=== PATIENT | male | born 1965 | race Hispanic/Latino ===

== ENCOUNTER 2017-03-31 09:09 | Outpatient (CLI) | payer BC ==
--- NOTE | 2017-03-31 10:33 | XRay Report ---
Bilateral knees: Pain. Standing views of both knees demonstrate moderate sized periarticular spurs involving the medial compartments. Subchondral cysts are identified involving both medial femoral condyles with suspicion of narrowing of the medial joint compartments bilaterally. There is relatively good alignment of both knees. The bones are well-mineralized. No swelling and no effusions are noted. Impressions: Degenerative medial compartment changes bilaterally.
== END 2017-03-31 09:10 | disposition home or self-care (01) ==
LOC: SPVIMAG 09:09
PROVIDERS: ATTEND Orthopaedic Surgery
DX: M17.0 Bilateral primary osteoarthritis of knee (principal); M25.861 Other specified joint disorders, right knee; M25.862 Other specified joint disorders, left knee